=== PATIENT | female | born 1945 | race Caucasian/White ===

== ENCOUNTER → 2016-09-18 | Outpatient (CLI) | payer OTHER | LOC: FIMAGING 10:08 | PROVIDERS: ATTEND Internal Medicine | DX: M54.16 Radiculopathy, lumbar region (principal); M51.36 Other intervertebral disc degeneration, lumbar region ==

== ENCOUNTER → 2017-10-20 | Outpatient (CLI) | payer OTHER | LOC: CIMAGING 10:48 | PROVIDERS: ATTEND Internal Medicine | DX: S80.00XA Contusion of unspecified knee, initial encounter (principal); S80.10XA Contusion of unspecified lower leg, initial encounter; W19.XXXA Unspecified fall, initial encounter; M17.11 Unilateral primary osteoarthritis, right knee | CPT/HCPCS: 73564-PO ==

== ENCOUNTER → 2018-03-09 | Outpatient (CLI) | payer OTHER | LOC: CIMAGING 09:47 | PROVIDERS: ATTEND Internal Medicine | DX: Z12.31 Encounter for screening mammogram for malignant neoplasm of breast (principal) ==

== ENCOUNTER → 2018-03-18 | Outpatient (CLI) | payer OTHER | LOC: CIMAGING 13:16 | PROVIDERS: ATTEND Internal Medicine | DX: R92.0 Mammographic microcalcification found on diagnostic imaging of breast (principal) ==